=== PATIENT | female | born 1940 | race African-American/Black ===

== ENCOUNTER 2017-04-01 19:11 | Inpatient (IN) | payer MEDICARE, MEDICAID ==
[~2017-04-01] VITALS: Ht 170.2 cm; Wt 87.1 kg
[~2017-04-01 19:11] MED LIST: ACET-2178 PO; ASPI-986 PO; ATOR10TA PO; DOCU-150 PO; DULO30CA2 PO; DULO60CA44 PO; FERR-63 PO; LORA2VIA33 PO; METF10002 PO; METO25TA6 PO; MULT-348 PO; PROT40 PO; RIVA20TA PO
[2017-04-01 20:00] VITALS: BP 147/98
[2017-04-01] MEDS ORDERED: DEXTROSE 50% WATER 50ML SYRINGE IV PRN (22:30)
[2017-04-01] MEDS ORDERED: FAMO20TA96 PO (23:07)
[2017-04-01] MEDS ORDERED: ASPI-1158 PO (23:07)
[2017-04-01] MEDS ORDERED: ACETAMINOPHEN 325MG TABLET PO PRN (23:15)
[2017-04-01] MEDS ORDERED: ONDANSETRON HCL 4MG/2ML VIAL IV PRN (23:30)
[2017-04-01] MEDS: BLOOD SUGAR DIAGNOSTIC STRIP TEST SCH (23:57)
[2017-04-02] VITALS: BP 168/86
[2017-04-02] MEDS: INSULIN LISPRO 100 UNITS/ML SUBCUT SCH ×5 (00:13→20:50)
[2017-04-02 01:02] LABS: BASOPHILS % 0.9 % (0.0-2.0); EOSINOPHILS % 2.8 % (0.0-5.0); HEMATOCRIT. 26.7 % (36.0-48.0); HEMOGLOBIN. 8.4 g/dL (12.0-16.0); LYMPHOCYTES % 30.2 % (20.0-50.0); MEAN CORPUSCULAR VOLUME 88.7 fL (81.0-99.0); MEAN PLATELET VOLUME 8.2 fl (7.4-10.4); MONOCYTES % 6.4 % (2.0-8.0); NEUTROPHILS % 59.7 % (40.0-76.0); PLATELET 275 x1000/uL (130-400); RED BLOOD CELL COUNT 3.01 mill/uL (4.2-5.4); RED CELL DISTRIBUTION WIDTH 16.7 % (11.6-14.6)
[2017-04-02 01:14] LABS: CHLORIDE 111 mEq/L (98-107)
[2017-04-02 01:24] LABS: CARBON DIOXIDE 26 mEq/L (21-32)
[2017-04-02 04:00] VITALS: BP 147/86
[2017-04-02] MEDS: BLOOD SUGAR DIAGNOSTIC STRIP TEST SCH ×4 (06:24→20:08)
[2017-04-02] MEDS: FAMOTIDINE 20MG TABLET PO SCH (06:24)
[2017-04-02] MEDS ORDERED: BLOOD SUGAR DIAGNOSTIC STRIP TEST SCH (07:20)
[2017-04-02] MEDS ORDERED: PRED1DRO LEFTEYE (07:33)
[2017-04-02] MEDS ORDERED: VIGAMX RIGHTEYE (07:33)
[2017-04-02] MEDS ORDERED: INSULIN LISPRO 100 UNITS/ML SUBCUT SCH (07:50)
[2017-04-02 08:00] VITALS: BP 125/91
[2017-04-02] MEDS: PREDNISOLONE ACETATE 1% OPHTH DROPS 1ML LEFTEYE SCH ×3 (09:00→17:32)
[2017-04-02] MEDS ORDERED: RIVAROXABAN 10 MG TABLET PO SCH (09:00)
[2017-04-02] MEDS ORDERED: MEDICATION NOT ON FORMULARY EA (Moxifloxacin Hcl (Vigamox) 1 DROP) RIGHTEYE SCH (09:00)
[2017-04-02] MEDS: FERROUS SULFATE 325MG TABLET PO SCH (09:17)
[2017-04-02] MEDS: MULTIVITAMINS,THER W-MINERALS TABLET PO SCH (09:17)
[2017-04-02] MEDS: DULOXETINE HCL 60MG DR CAPSULE PO SCH (09:17)
[2017-04-02] MEDS: ASPIRIN 81MG EC TABLET PO SCH (09:17)
[2017-04-02 12:00] VITALS: BP 154/102
[2017-04-02] MEDS: CIPROFLOXACIN 0.3% OPHTH SOLN 2.5ML RIGHTEYE SCH ×3 (12:23→20:10)
[2017-04-02 16:00] VITALS: BP 126/82
[2017-04-02] MEDS ORDERED: RIVAROXABAN 20 MG TABLET PO SCH (17:00)
[2017-04-02 20:00] VITALS: BP 114/69
[2017-04-02] MEDS: ATORVASTATIN CALCIUM 10MG TABLET PO SCH (20:09)
[2017-04-03] VITALS: BP 128/78
[2017-04-03 04:00] VITALS: BP 130/86
[2017-04-03 06:48] LABS: BASOPHILS % 1.1 % (0.0-2.0); EOSINOPHILS % 3.1 % (0.0-5.0); HEMOGLOBIN. 8.3 g/dL (12.0-16.0); LYMPHOCYTES % 33.2 % (20.0-50.0); MEAN CORPUSCULAR HEMOGLOBIN 28.1 pg (28.0-32.0); MEAN CORPUSCULAR VOLUME 88.6 fL (81.0-99.0); MEAN PLATELET VOLUME 8.8 fl (7.4-10.4); NEUTROPHILS % 54.6 % (40.0-76.0); PLATELET 268 x1000/uL (130-400); RED BLOOD CELL COUNT 2.94 mill/uL (4.2-5.4); RED CELL DISTRIBUTION WIDTH 16.7 % (11.6-14.6)
[2017-04-03] MEDS: BLOOD SUGAR DIAGNOSTIC STRIP TEST SCH ×4 (07:25→23:08)
[2017-04-03] MEDS: INSULIN LISPRO 100 UNITS/ML SUBCUT SCH ×4 (07:50→23:23)
[2017-04-03] MEDS: FAMOTIDINE 20MG TABLET PO SCH (07:53)
[2017-04-03 08:00] VITALS: BP 146/86
[2017-04-03] MEDS: CIPROFLOXACIN 0.3% OPHTH SOLN 2.5ML RIGHTEYE SCH ×4 (08:16→22:00)
[2017-04-03] MEDS: DULOXETINE HCL 60MG DR CAPSULE PO SCH (08:16)
[2017-04-03] MEDS: PREDNISOLONE ACETATE 1% OPHTH DROPS 1ML LEFTEYE SCH ×3 (08:16→17:12)
[2017-04-03] MEDS: FERROUS SULFATE 325MG TABLET PO SCH (08:16)
[2017-04-03] MEDS: MULTIVITAMINS,THER W-MINERALS TABLET PO SCH (08:16)
[2017-04-03] MEDS: ASPIRIN 81MG EC TABLET PO SCH (08:16)
[2017-04-03 08:31] LABS: CARBON DIOXIDE 25 mEq/L (21-32); CHLORIDE 112 mEq/L (98-107); LDL CHOLESTEROL 108 mg/dL (5-100); PHOSPHORUS 3.6 mg/dL (2.5-4.9); TOTAL IRON BINDING CAPACITY 182 ug/dL (250-450)
[2017-04-03 08:33] LABS: HDL CHOLESTEROL 41 mg/dL (40-59)
[2017-04-03 08:42] LABS: T4 FREE 0.91 ng/dL (0.76-1.46)
[2017-04-03 12:00] VITALS: BP 139/87
[2017-04-03 12:20] LABS: FOLIC ACID (FOLATE) SERUM 11.1 ng/mL (>5.38)
[2017-04-03] MEDS ORDERED: MAGNESIUM 1 G PREMIX 100 ML IV SCH (14:00)
[2017-04-03 16:00] VITALS: BP 138/94
[2017-04-03] MEDS: APIXABAN 5 MG TABLET PO SCH (17:17)
[2017-04-03 20:00] VITALS: BP 136/75
[2017-04-03] MEDS: ATORVASTATIN CALCIUM 10MG TABLET PO SCH (22:00)
[2017-04-04] VITALS: BP 135/88
[2017-04-04 04:00] VITALS: BP 142/88
[2017-04-04] MEDS: BLOOD SUGAR DIAGNOSTIC STRIP TEST SCH ×2 (06:24→12:20)
[2017-04-04] MEDS: FAMOTIDINE 20MG TABLET PO SCH (06:26)
[2017-04-04 06:42] LABS: BASOPHILS % 0.6 % (0.0-2.0); EOSINOPHILS % 3.5 % (0.0-5.0); HEMATOCRIT. 26.3 % (36.0-48.0); HEMOGLOBIN. 8.3 g/dL (12.0-16.0); LYMPHOCYTES % 33.8 % (20.0-50.0); MEAN CORPUSCULAR HEMOGLOBIN 27.8 pg (28.0-32.0); MEAN CORPUSCULAR VOLUME 88.6 fL (81.0-99.0); MEAN PLATELET VOLUME 8.6 fl (7.4-10.4); MONOCYTES % 8.8 % (2.0-8.0); NEUTROPHILS % 53.3 % (40.0-76.0); PLATELET 267 x1000/uL (130-400); RED BLOOD CELL COUNT 2.97 mill/uL (4.2-5.4); RED CELL DISTRIBUTION WIDTH 16.9 % (11.6-14.6)
[2017-04-04] MEDS: INSULIN LISPRO 100 UNITS/ML SUBCUT SCH ×2 (07:49→12:50)
[2017-04-04 08:00] VITALS: BP 131/81
[2017-04-04] MEDS: APIXABAN 5 MG TABLET PO SCH (10:53)
[2017-04-04] MEDS: PREDNISOLONE ACETATE 1% OPHTH DROPS 1ML LEFTEYE SCH ×2 (10:53→13:27)
[2017-04-04] MEDS: FERROUS SULFATE 325MG TABLET PO SCH (10:54)
[2017-04-04] MEDS: MULTIVITAMINS,THER W-MINERALS TABLET PO SCH (10:54)
[2017-04-04] MEDS: ASPIRIN 81MG EC TABLET PO SCH (10:54)
[2017-04-04] MEDS: CIPROFLOXACIN 0.3% OPHTH SOLN 2.5ML RIGHTEYE SCH ×2 (10:54→13:27)
[2017-04-04] MEDS: DULOXETINE HCL 60MG DR CAPSULE PO SCH (10:54)
[2017-04-04 12:00] VITALS: BP 143/82
[2017-04-10] MEDS ORDERED: APIXABAN 5 MG TABLET PO SCH (17:50)
== END 2017-04-04 15:15 | DRG 299 ==
LOC: 6EST 19:11
PROVIDERS: ADMIT Internal Medicine; ATTEND Internal Medicine
DX: I82.411 Acute embolism and thrombosis of right femoral vein (principal); E43 Unspecified severe protein-calorie malnutrition; D63.8 Anemia in other chronic diseases classified elsewhere; E11.22 Type 2 diabetes mellitus with diabetic chronic kidney disease; N18.9 Chronic kidney disease, unspecified; I13.10 Hypertensive heart and chronic kidney disease without heart failure, with stage 1 through stage 4 chronic kidney disease, or unspecified chronic kidney disease; R62.7 Adult failure to thrive; E66.9 Obesity, unspecified; I82.532 Chronic embolism and thrombosis of left popliteal vein; E11.51 Type 2 diabetes mellitus with diabetic peripheral angiopathy without gangrene; J98.9 Respiratory disorder, unspecified; I82.512 Chronic embolism and thrombosis of left femoral vein; E78.5 Hyperlipidemia, unspecified; Z86.73 Personal history of transient ischemic attack (TIA), and cerebral infarction without residual deficits; Z68.30 Body mass index [BMI] 30.0-30.9, adult; Z79.4 Long term (current) use of insulin; Z79.01 Long term (current) use of anticoagulants
CPT/HCPCS: 36415; 71020; 78582; 80048; 80053; 80061; 80069; 80076; 82248; 82607; 82746; 82962; 83036; 83540; 83550; 83735; 83880; 84100; 84439; 84443; 84481; 84550; 85025; 85651; 93005; 93970; A9558; J1815; J3475; J7040

== ENCOUNTER 2018-05-27 22:24 | Inpatient (IN) | payer MEDICARE, MEDICAID ==
[~2018-05-27] VITALS: Ht 165.1 cm; Wt 75.3 kg
[2018-05-27 21:10] VITALS: BP 124/64
[2018-05-27 21:15] VITALS: BP 124/64
[~2018-05-27 22:24] MED LIST changes: -ACET-2178 PO; -ASPI-986 PO; -DOCU-150 PO; -DULO30CA2 PO; +FAMO-135 PO; -FERR-63 PO; +IPRA3AMP9 HHN; +LACT10SO6 PO; -LORA2VIA33 PO; -METF10002 PO; -METO25TA6 PO; -MULT-348 PO; +NEPVIT PO; -PROT40 PO; -RIVA20TA PO
[2018-05-28] VITALS: BP 143/79
[2018-05-28] MEDS ORDERED: DEXTROSE 50% WATER 50ML SYRINGE IV PRN (02:00)
[2018-05-28] MEDS ORDERED: ACETAMINOPHEN 325MG TABLET PO PRN (02:00)
[2018-05-28] MEDS ORDERED: ONDANSETRON HCL 4MG TABLET PO PRN (02:00)
[2018-05-28] MEDS ORDERED: TRAMADOL 50MG TABLET PO PRN (02:00)
[2018-05-28 04:00] VITALS: BP 135/74
[2018-05-28] MEDS: BLOOD SUGAR DIAGNOSTIC STRIP TEST SCH ×4 (06:26→20:55)
[2018-05-28 07:20] LABS: T4 FREE 0.97 ng/dL (0.76-1.46)
[2018-05-28] MEDS: INSULIN LISPRO 100 UNITS/ML SUBCUT SCH ×4 (07:21→21:00)
[2018-05-28 08:00] VITALS: BP 125/84
[2018-05-28] MEDS ORDERED: FAMOTIDINE 20MG TABLET PO SCH (08:00)
[2018-05-28] MEDS: FOLIC ACID/VITAMIN B COMP W-C TABLET PO SCH (09:08)
[2018-05-28] MEDS: GABAPENTIN 100MG CAPSULE PO SCH ×2 (09:08→20:59)
[2018-05-28] MEDS: DOCUSATE SODIUM 100MG CAPSULE PO SCH ×2 (09:08→16:22)
[2018-05-28] MEDS: DULOXETINE HCL 30MG DR CAPSULE PO SCH (09:09)
[2018-05-28 12:33] VITALS: BP 130/72
[2018-05-28 16:09] VITALS: BP 128/77
[2018-05-28 20:00] VITALS: BP 142/75
[2018-05-28] MEDS: ATORVASTATIN CALCIUM 10MG TABLET PO SCH (20:59)
[2018-05-28] MEDS: INSULIN GLARGINE UD 100 UNITS/ML SYR SUBCUT SCH (21:37)
[2018-05-29] VITALS: BP 145/80
[2018-05-29 04:00] VITALS: BP 140/81
[2018-05-29] MEDS: BLOOD SUGAR DIAGNOSTIC STRIP TEST SCH ×4 (06:18→20:44)
[2018-05-29] MEDS: INSULIN LISPRO 100 UNITS/ML SUBCUT SCH ×4 (07:40→20:55)
[2018-05-29 07:49] LABS: BASOPHILS % 0.8 % (0.0-2.0); EOSINOPHILS % 4.9 % (0.0-5.0); HEMATOCRIT. 41.1 % (36.0-48.0); HEMOGLOBIN. 12.8 g/dL (12.0-16.0); LYMPHOCYTES % 29.8 % (20.0-50.0); MEAN CORPUSCULAR HEMOGLOBIN 25.7 pg (28.0-32.0); MEAN CORPUSCULAR VOLUME 82.3 fL (81.0-99.0); MEAN PLATELET VOLUME 8.3 fl (7.4-10.4); MONOCYTES % 8.2 % (2.0-8.0); NEUTROPHILS % 56.3 % (40.0-76.0); PLATELET 213 x1000/uL (130-400); RED BLOOD CELL COUNT 4.99 mill/uL (4.2-5.4); RED CELL DISTRIBUTION WIDTH 18.2 % (11.6-14.6)
[2018-05-29 08:00] VITALS: BP 129/73
[2018-05-29] MEDS: FOLIC ACID/VITAMIN B COMP W-C TABLET PO SCH (09:34)
[2018-05-29] MEDS: GABAPENTIN 100MG CAPSULE PO SCH ×2 (09:34→20:53)
[2018-05-29] MEDS: DULOXETINE HCL 30MG DR CAPSULE PO SCH (09:34)
[2018-05-29] MEDS: DOCUSATE SODIUM 100MG CAPSULE PO SCH ×2 (09:34→17:00)
[2018-05-29 11:53] LABS: PHOSPHORUS 4.8 mg/dL (2.5-4.9)
[2018-05-29 20:00] VITALS: BP 96/67
[2018-05-29] MEDS: ATORVASTATIN CALCIUM 10MG TABLET PO SCH (20:52)
[2018-05-29] MEDS: INSULIN GLARGINE UD 100 UNITS/ML SYR SUBCUT SCH (21:36)
[2018-05-30] VITALS: BP 128/81
[2018-05-30 04:00] VITALS: BP 148/87
[2018-05-30] MEDS: INSULIN LISPRO 100 UNITS/ML SUBCUT SCH ×4 (06:43→21:12)
[2018-05-30] MEDS: BLOOD SUGAR DIAGNOSTIC STRIP TEST SCH ×4 (06:43→21:12)
[2018-05-30 08:00] VITALS: BP 119/73
[2018-05-30] MEDS: DOCUSATE SODIUM 100MG CAPSULE PO SCH ×2 (09:00→17:00)
[2018-05-30] MEDS: FOLIC ACID/VITAMIN B COMP W-C TABLET PO SCH (09:00)
[2018-05-30] MEDS: GABAPENTIN 100MG CAPSULE PO SCH ×2 (09:00→21:12)
[2018-05-30] MEDS: DULOXETINE HCL 30MG DR CAPSULE PO SCH (09:00)
[2018-05-30 12:00] VITALS: BP 97/56
[2018-05-30 16:00] VITALS: BP 117/70
[2018-05-30 20:00] VITALS: BP 126/73
[2018-05-30] MEDS: ATORVASTATIN CALCIUM 10MG TABLET PO SCH (21:12)
[2018-05-30] MEDS: INSULIN GLARGINE UD 100 UNITS/ML SYR SUBCUT SCH (22:19)
[2018-05-31] VITALS: BP 128/78
[2018-05-31 04:00] VITALS: BP 132/76
[2018-05-31] MEDS: BLOOD SUGAR DIAGNOSTIC STRIP TEST SCH ×4 (06:17→21:15)
[2018-05-31] MEDS: INSULIN LISPRO 100 UNITS/ML SUBCUT SCH ×4 (06:18→21:19)
[2018-05-31 08:00] VITALS: BP 120/60
[2018-05-31] MEDS: DULOXETINE HCL 30MG DR CAPSULE PO SCH (09:32)
[2018-05-31] MEDS: FOLIC ACID/VITAMIN B COMP W-C TABLET PO SCH (09:32)
[2018-05-31] MEDS: DOCUSATE SODIUM 100MG CAPSULE PO SCH ×2 (09:32→17:14)
[2018-05-31] MEDS: GABAPENTIN 100MG CAPSULE PO SCH ×2 (09:32→21:18)
[2018-05-31 12:00] VITALS: BP 118/65
[2018-05-31 16:00] VITALS: BP 118/65
[2018-05-31 20:00] VITALS: BP 104/56
[2018-05-31] MEDS: ATORVASTATIN CALCIUM 10MG TABLET PO SCH (21:18)
[2018-05-31] MEDS: INSULIN GLARGINE UD 100 UNITS/ML SYR SUBCUT SCH (21:20)
[2018-06-01] VITALS: BP 117/65
[2018-06-01 04:00] VITALS: BP 140/76
[2018-06-01] MEDS: INSULIN LISPRO 100 UNITS/ML SUBCUT SCH ×4 (06:58→21:00)
[2018-06-01] MEDS: BLOOD SUGAR DIAGNOSTIC STRIP TEST SCH ×4 (06:58→21:48)
[2018-06-01 08:00] VITALS: BP 118/63
[2018-06-01] MEDS: DOCUSATE SODIUM 100MG CAPSULE PO SCH ×2 (09:00→16:08)
[2018-06-01] MEDS: GABAPENTIN 100MG CAPSULE PO SCH (09:21)
[2018-06-01] MEDS: DULOXETINE HCL 30MG DR CAPSULE PO SCH (09:21)
[2018-06-01] MEDS: FOLIC ACID/VITAMIN B COMP W-C TABLET PO SCH (09:21)
[2018-06-01 12:00] VITALS: BP 120/75
[2018-06-01 16:30] VITALS: BP 140/70
[2018-06-01 20:00] VITALS: BP 123/70
[2018-06-01] MEDS ORDERED: GABAPENTIN 100MG CAPSULE PO SCH (21:00)
[2018-06-01] MEDS: ATORVASTATIN CALCIUM 10MG TABLET PO SCH (21:41)
[2018-06-01] MEDS: INSULIN GLARGINE UD 100 UNITS/ML SYR SUBCUT SCH (22:24)
[2018-06-02] VITALS: BP 118/67
[2018-06-02 04:00] VITALS: BP 148/86
[2018-06-02] MEDS: BLOOD SUGAR DIAGNOSTIC STRIP TEST SCH (07:10)
[2018-06-02] MEDS: INSULIN LISPRO 100 UNITS/ML SUBCUT SCH (07:40)
[2018-06-02 08:00] VITALS: BP 117/64
[2018-06-02] MEDS: DOCUSATE SODIUM 100MG CAPSULE PO SCH (08:21)
[2018-06-02] MEDS: DULOXETINE HCL 30MG DR CAPSULE PO SCH (08:28)
[2018-06-02] MEDS: FOLIC ACID/VITAMIN B COMP W-C TABLET PO SCH (08:28)
[2018-06-02 10:00] VITALS: BP 119/64
== END 2018-06-02 10:55 | DRG 391 ==
LOC: 8WST 22:24
PROVIDERS: ADMIT Internal Medicine; ATTEND Internal Medicine
PROC: 5A1D70Z Performance of Urinary Filtration, Intermittent, Less than 6 Hours Per Day (ICD-10-PCS; principal; 2018-05-30)
DX: K90.49 Malabsorption due to intolerance, not elsewhere classified (principal); N18.6 End stage renal disease; I13.2 Hypertensive heart and chronic kidney disease with heart failure and with stage 5 chronic kidney disease, or end stage renal disease; R62.7 Adult failure to thrive; Z99.2 Dependence on renal dialysis; E11.40 Type 2 diabetes mellitus with diabetic neuropathy, unspecified; D63.8 Anemia in other chronic diseases classified elsewhere; E11.22 Type 2 diabetes mellitus with diabetic chronic kidney disease; R63.4 Abnormal weight loss; F03.90 Unspecified dementia, unspecified severity, without behavioral disturbance, psychotic disturbance, mood disturbance, and anxiety; J44.9 Chronic obstructive pulmonary disease, unspecified; R53.1 Weakness; D64.9 Anemia, unspecified; I50.9 Heart failure, unspecified; E11.21 Type 2 diabetes mellitus with diabetic nephropathy; I25.10 Atherosclerotic heart disease of native coronary artery without angina pectoris; M51.87 Other intervertebral disc disorders, lumbosacral region; M48.061 Spinal stenosis, lumbar region without neurogenic claudication; M51.27 Other intervertebral disc displacement, lumbosacral region; E78.5 Hyperlipidemia, unspecified; I67.9 Cerebrovascular disease, unspecified; I48.0 Paroxysmal atrial fibrillation; K21.9 Gastro-esophageal reflux disease without esophagitis; Z87.01 Personal history of pneumonia (recurrent); Z86.73 Personal history of transient ischemic attack (TIA), and cerebral infarction without residual deficits; Z87.440 Personal history of urinary (tract) infections; Z87.891 Personal history of nicotine dependence; I25.2 Old myocardial infarction; Z88.5 Allergy status to narcotic agent; Z68.27 Body mass index [BMI] 27.0-27.9, adult; Z84.1 Family history of disorders of kidney and ureter; T42.6X5A Adverse effect of other antiepileptic and sedative-hypnotic drugs, initial encounter
CPT/HCPCS: 36415; 80048; 80061; 80076; 82962; 83540; 83550; 83735; 84100; 84439; 84443; 84480; 84550; 85025; 85651; 97162; A6261; J1815; J7030

== ENCOUNTER 2018-06-22 05:33 | Day surgery (SDC) | payer MEDICARE, MEDICAID ==
[~2018-06-22] VITALS: Ht 172.7 cm; Wt 79.8 kg
[~2018-06-22 05:33] MED LIST changes: -DULO60CA44 PO; +GABA-529 PO; -LACT10SO6 PO; +LEVVL SQ; -NEPVIT PO
[2018-06-22] MEDS ORDERED: BACITRACIN ZINC 15GM TUBE TOP ONE (06:46)
[2018-06-22] MEDS ORDERED: HEPARIN SODIUM 1,000 UNIT/1ML VIAL IV ONE (06:46)
[2018-06-22] MEDS ORDERED: THROMBIN (BOVINE) 5000 UNITS/VIAL TOP ONE (06:46)
[2018-06-22] MEDS ORDERED: BUPIVACAINE HCL/PF 0.5% (5MG/ML) 10ML ONE (06:47)
[2018-06-22] MEDS ORDERED: LIDOCAINE HCL/PF 1% 10 MG/ML 5ML VIAL ONE ×2 (06:47→08:15)
[2018-06-22] MEDS ORDERED: BACITRACIN 50,000 UNITS/VIAL ONE (06:47)
[2018-06-22] MEDS ORDERED: GELATIN SPONGE,COMPRESSED SZ 100 ONE (06:47)
[2018-06-22] MEDS ORDERED: SODIUM CHLORIDE 0.9% 10ML VIAL ONE (06:51)
[2018-06-22 07:04] LABS: BASOPHILS % 0.8 % (0.0-2.0); EOSINOPHILS % 8.1 % (0.0-5.0); HEMATOCRIT. 40.8 % (36.0-48.0); HEMOGLOBIN. 12.8 g/dL (12.0-16.0); MEAN CORPUSCULAR HEMOGLOBIN 25.3 pg (28.0-32.0); MEAN CORPUSCULAR VOLUME 81.2 fL (81.0-99.0); MEAN PLATELET VOLUME 7.9 fl (7.4-10.4); MONOCYTES % 9.3 % (2.0-8.0); NEUTROPHILS % 57.8 % (40.0-76.0); PLATELET 255 x1000/uL (130-400); RED BLOOD CELL COUNT 5.03 mill/uL (4.2-5.4); RED CELL DISTRIBUTION WIDTH 18.3 % (11.6-14.6)
[2018-06-22 07:10] LABS: INR 1.1; PROTHROMBIN TIME 10.6 sec (9.1-11.1)
[2018-06-22] MEDS ORDERED: SODIUM CHLORIDE 0.9% 500 ML IV ONE (07:30)
[2018-06-22] MEDS ORDERED: FOLI1TAB63 PO (08:05)
[2018-06-22] MEDS ORDERED: FENTANYL CITRATE/PF 50MCG/ML 5ML VIAL ONE (08:13)
[2018-06-22] MEDS ORDERED: ONDANSETRON HCL 4MG/2ML VIAL ONE (08:14)
[2018-06-22] MEDS ORDERED: PROPOFOL 200MG/20ML VIAL IV ONE (08:14)
[2018-06-22] MEDS ORDERED: CEFAZOLIN SODIUM 1000MG/VIAL ONE (08:31)
[2018-06-22] MEDS ORDERED: HEPARIN 1000 UNITS/ML 10ML ONE (09:49)
== END 2018-06-22 11:55 | disposition home or self-care (01) ==
LOC: OR 05:33
PROVIDERS: ATTEND Surgery Vascular Surgery
DX: N18.6 End stage renal disease (principal); I25.10 Atherosclerotic heart disease of native coronary artery without angina pectoris; J44.9 Chronic obstructive pulmonary disease, unspecified; M48.061 Spinal stenosis, lumbar region without neurogenic claudication; I13.2 Hypertensive heart and chronic kidney disease with heart failure and with stage 5 chronic kidney disease, or end stage renal disease; E11.22 Type 2 diabetes mellitus with diabetic chronic kidney disease; I50.9 Heart failure, unspecified; K21.9 Gastro-esophageal reflux disease without esophagitis; D53.9 Nutritional anemia, unspecified; E78.5 Hyperlipidemia, unspecified; I25.2 Old myocardial infarction; I48.0 Paroxysmal atrial fibrillation; Z87.891 Personal history of nicotine dependence; Z99.2 Dependence on renal dialysis; Z88.5 Allergy status to narcotic agent; Z86.73 Personal history of transient ischemic attack (TIA), and cerebral infarction without residual deficits; Z79.899 Other long term (current) drug therapy; Z98.890 Other specified postprocedural states; Z79.4 Long term (current) use of insulin
CPT/HCPCS: 36415; 36821; 71045; 80048; 82962; 85025; 85610; 85730; 93005; A4216; J0690; J1644; J2405; J3010; J3490; J7040; J2704

== ENCOUNTER 2018-08-26 19:40 | Inpatient (IN) | payer MEDICARE, MEDICAID ==
[~2018-08-26] VITALS: Ht 172.7 cm; Wt 77.1 kg
[~2018-08-26 19:40] MED LIST changes: +DOCU-138 MT; +FOLI1TAB63 PO
[2018-08-26 21:57] LABS: BASOPHILS % 0.7 % (0.0-2.0); EOSINOPHILS % 1.7 % (0.0-5.0); LYMPHOCYTES % 16.3 % (20.0-50.0); MEAN CORPUSCULAR HEMOGLOBIN 26.4 pg (28.0-32.0); MEAN CORPUSCULAR VOLUME 83.5 fL (81.0-99.0); MEAN PLATELET VOLUME 7.9 fl (7.4-10.4); MONOCYTES % 11.8 % (2.0-8.0); NEUTROPHILS % 69.5 % (40.0-76.0); PLATELET 265 x1000/uL (130-400); RED BLOOD CELL COUNT 2.49 mill/uL (4.2-5.4); RED CELL DISTRIBUTION WIDTH 21.5 % (11.6-14.6)
[2018-08-26 22:00] LABS: INR 1.1; PROTHROMBIN TIME 11.5 sec (9.1-11.1)
[2018-08-26 22:01] LABS: HEMATOCRIT. 20.8 % (36.0-48.0); HEMOGLOBIN. 6.6 g/dL (12.0-16.0)
[2018-08-26 22:02] LABS: CHLORIDE 96 mEq/L (98-107)
[2018-08-27 03:40] VITALS: BP 102/50
[2018-08-27] MEDS ORDERED: FOLI1TAB63 MT (04:35)
[2018-08-27 07:43] VITALS: BP 104/52
[2018-08-27] MEDS ORDERED: ONDANSETRON HCL 4MG/2ML INJ IV PRN (10:45)
[2018-08-27] MEDS ORDERED: ACETAMINOPHEN 650MG/20.3ML UDC GT PRN (10:45)
[2018-08-27] MEDS ORDERED: MAGNESIUM/ALUMINUM HYDROXIDE/SIMETHICONE 30ML UDC PO PRN (10:45)
[2018-08-27] MEDS ORDERED: DOCUSATE SODIUM 100MG CAPSULE PO PRN (10:45)
[2018-08-27 12:00] VITALS: BP 95/46
[2018-08-27] MEDS: FOLIC ACID/VITAMIN B COMP W-C TABLET PO SCH (12:27)
[2018-08-27] MEDS: INSULIN LISPRO 100 UNITS/ML SUBCUT SCH ×3 (12:40→20:19)
[2018-08-27] MEDS ORDERED: DEXTROSE 50% WATER 50ML SYRINGE IV PRN (12:45)
[2018-08-27 16:00] VITALS: BP 98/44
[2018-08-27] MEDS: BLOOD SUGAR DIAGNOSTIC STRIP TEST SCH ×2 (17:09→20:19)
[2018-08-27 20:00] VITALS: BP 113/51
[2018-08-27] MEDS ORDERED: EPOETIN ALFA 10000UNITS/ML VIAL SUBCUT SCH (21:00)
[2018-08-27 21:24] LABS: HEMATOCRIT 28.9 % (36.0-48.0); MEAN CORPUSCULAR HEMOGLOBIN 26.4 pg (28.0-32.0); MEAN CORPUSCULAR VOLUME 84.5 fL (81.0-99.0); PLATELET 293 x1000/uL (130-400); RED BLOOD CELL COUNT 3.42 mill/uL (4.2-5.4); RED CELL DISTRIBUTION WIDTH 19.9 % (11.6-14.6)
[2018-08-27 21:45] LABS: INR 1.1; PROTHROMBIN TIME 11.1 sec (9.1-11.1)
[2018-08-28] VITALS: BP 123/56
[2018-08-28 04:00] VITALS: BP 107/52
[2018-08-28] MEDS: BLOOD SUGAR DIAGNOSTIC STRIP TEST SCH ×2 (06:42→11:55)
[2018-08-28] MEDS: INSULIN LISPRO 100 UNITS/ML SUBCUT SCH ×2 (06:43→11:56)
[2018-08-28 08:29] VITALS: BP 103/53
[2018-08-28] MEDS: FOLIC ACID/VITAMIN B COMP W-C TABLET PO SCH (09:19)
[2018-08-28 12:00] VITALS: BP 126/67
[2018-08-28 13:19] VITALS: BP 126/67
== END 2018-08-28 15:58 | DRG 291 ==
LOC: ER 19:56 → 8WST 23:30 → EDBEDREQTM 23:37 → EDBEDREQ 23:37 → ENRESERV 08-27 02:05
PROVIDERS: ADMIT Internal Medicine; ATTEND Internal Medicine
PROC: 30233N1 Transfusion of Nonautologous Red Blood Cells into Peripheral Vein, Percutaneous Approach (ICD-10-PCS; principal; 2018-08-26)
PROC: 5A1D70Z Performance of Urinary Filtration, Intermittent, Less than 6 Hours Per Day (ICD-10-PCS; 2018-08-26)
DX: I13.2 Hypertensive heart and chronic kidney disease with heart failure and with stage 5 chronic kidney disease, or end stage renal disease (principal); N18.6 End stage renal disease; E46 Unspecified protein-calorie malnutrition; D63.1 Anemia in chronic kidney disease; E11.22 Type 2 diabetes mellitus with diabetic chronic kidney disease; E78.5 Hyperlipidemia, unspecified; F03.90 Unspecified dementia, unspecified severity, without behavioral disturbance, psychotic disturbance, mood disturbance, and anxiety; I25.10 Atherosclerotic heart disease of native coronary artery without angina pectoris; I50.9 Heart failure, unspecified; J44.9 Chronic obstructive pulmonary disease, unspecified; K21.9 Gastro-esophageal reflux disease without esophagitis; Z99.2 Dependence on renal dialysis; Z74.01 Bed confinement status; I25.2 Old myocardial infarction; Z86.73 Personal history of transient ischemic attack (TIA), and cerebral infarction without residual deficits; Z87.01 Personal history of pneumonia (recurrent); Z87.440 Personal history of urinary (tract) infections; Z87.891 Personal history of nicotine dependence; Z88.5 Allergy status to narcotic agent; Z79.4 Long term (current) use of insulin; Z79.899 Other long term (current) drug therapy; Z68.25 Body mass index [BMI] 25.0-25.9, adult
CPT/HCPCS: 36415; 71045; 82962; 85027; 85384; 86850; 86900; 86920; 93005; 99285; J0885; J7030; J7050; P9016